=== PATIENT | female | born 1995 | race Caucasian/White ===

== ENCOUNTER 2022-06-22 19:08 | Emergency (ER) | payer OTHER ==
[~2022-06-22] VITALS: Ht 165.1 cm; Wt 95.3 kg
[2022-06-22 19:38] VITALS: BP 124/76
--- NOTE | 2022-06-22 22:05 | NUR ---
PT WALKED TO BED 6
--- NOTE | 2022-06-22 22:10 | NUR ---
PT HAVING ULTRASOUND DONE
--- NOTE | 2022-06-22 22:16 | NUR ---
26/F C/O RIGHT LOWER LEG PAIN SINCE YESTERDAY. STATES SHE FEELS DISCOMFORT ON FRONTAL LEG RADIATING UP, REPORTS GIVING ON 06/16/22. NO REDNESS, TENDERNESS OR WARMTH NOTED. DENIES SOB. PMH: DENIES NKA
--- NOTE | 2022-06-22 22:40 | NUR ---
Patient discharged with v/s stable. Written and verbal after care instructions given and explained. Patient verbalized understanding. Ambulatory with steady gait. All questions addressed prior to discharge. Advised to follow up with PMD.
[2022-06-23] MEDS ORDERED: INTUBATION KIT MC ONE (15:39)
== END 2022-06-22 22:40 | disposition home or self-care (01) ==
LOC: MED 19:08
DX: M79.604 Pain in right leg (principal)
CPT/HCPCS: 93971; 99284; Q0092